=== PATIENT | female | born 1975 | race Hispanic/Latino ===

== ENCOUNTER 2016-05-18 14:27 | Emergency (ER) | payer OTHER ==
[~2016-05-18] VITALS: Ht 157.5 cm; Wt 82.7 kg
[~2016-05-18 14:27] MED LIST: CLIN-78 PO; KETO10DR13 OP; NOMED
[2016-05-18 14:48] VITALS: BP 164/103; PULSE 98; RESP 15; O2SAT 100
--- NOTE | 2016-05-18 17:27 | ED.REPORT ---
HPI-Chest Pain Under 40 Date of Service May 18, 2016 ED Provider: Dr. Khanh Turk M.D. A 40 year old female with a history of anxiety and asthma presents to the ED with lower back pain onset yesterday. The patient took Ibuprofen at onset with some relief but the pain worsened at 1300 today, concentrating on the right. The pain is exacerbated with movement. The patient denies fever, numbness/ weakness in the legs, incontinence, or other symptoms. Nursing Notes Stated Complaint: LOWER BACK PAIN Chief Complaint: Back Pain or Injury Nursing Notes Reviewed: Yes Allergies: Coded Allergies: nalbuphine (Verified Allergy, Severe, 07/13/15) SKIN PAIN Penicillins (Verified Allergy, Intermediate, 07/13/15) oxycodone (Verified Allergy, Intermediate, Rash, 05/18/16) Scheduled Clindamycin (Clindamycin) 300 Mg Capsule 300 MG PO QID Ketotifen Fumarate (Allergy Eye Drops) 10 Ml Drops 0.025 % OP DAILY 2 drops daily to rt eye Scheduled PRN Ibuprofen (Ibuprofen) 600 Mg Tablet 600 MG PO QID PRN PRN For Pain Miscellaneous Medications No Historical Medication (No Historical Medication) Ea General Time Seen by MD: 17:26 Chief Complaint Back pain Hx Obtained From: Patient Arrived By: Walk-in Onset Occurred: Yesterday (Worsening 1300) Symptom Duration: Since onset Location: : Back (Lower, right) Quality: Painful Severity: Current: Moderate Severity: Maximum: Moderate Associated with: Denies: Fever, Numbness/tingling, Weakness Exacerbated by: Movement Relieved by: OTC medications Context Related History: Reports: Anxiety disorder, Asthma Recent Healthcare: No recent doctor visit Past Medical History Past Medical History Anxiety Asthma Past Surgical History Reports: Appendectomy, Cholecystectomy Reports: Tubal ligation Smoking History Unknown if Ever Smoker Social History Other Social History: Good social support, Local resident Ambulatory Status Independent Review of Systems Her last normal menstrual period was at the end of last month. Constitutional: Denies: Fever Respiratory: Denies: Non-productive cough, Shortness of breath GI: Denies: Diarrhea, Vomiting Musculoskeletal: Reports: Back pain (Lower, right-sided) Neurologic: Denies: Bladder dysfunction, Bowel dysfunction, Numbness, Weakness Complete sys rev & neg: except as marked. Physical Exam Initial Vital Signs Vital Signs (First) Date Time Temp Pulse Resp B/P Pulse Ox O2 Delivery O2 Flow Rate FiO2 05/18/16 14:48 36.2 98 15 164/103 100 Room Air Initial VS: Reviewed Head / Eyes: Atraumatic, Normocephalic ENT: Conjunctiva normal, No scleral icterus Skin: Warm, Dry Psychiatric: Mood/affect normal, Behavior normal, Normal thought content General/Constitutional: Awake, Alert Back: No midline vertebral tend, No CVA tenderness No sacral tenderness Neurologic: Speech NL, No motor deficits, Reflexes equal bilat Gait Abnormality: Positive: Antalgic gait Interpretation & Diagnostics URINE TEST: Negative URINE DIPSTICK: 1.005 sp gravity 5 pH Normal Glucose Normal Urobilinogen Otherwise Negative Lab Results Interpretation Test 05/18/16 16:47 Hold Urine Received (Received) Re-Eval/Medical Decision Source of Hx: Old records Re-Evaluation/Progress : Time of Eval: 17:45 Patient Status: Condition improved Re-Evaluation/Progress Note: Discussed with patient lab results, diagnosis, and plan for discharge. Follow-up and return to the ER instructions given. Patient agrees with plan for care and all questions were addressed. Counseled Regarding: Diagnosis, Lab results, Need for follow-up, When/why to return to ED Discharge & Departure Departure Notes Pt advised to re-check with PMD soon re BP Primary Impression: Low back pain Chronicity: acute Back pain laterality: right Sciatica presence: without sciatica Qualified Code: M54.5 - Low back pain Disposition: Home Discharge Condition All VS Reviewed: Yes Condition: Improved Patient Instructions: Low Back Strain (ED) Additional Instructions: ED evaluation included interview and exam. We also checked urine. This back pain is musculoskeletal. Activity as tolerated, avoid bending or lifting more than 20# for one week. Ice to sore areas, keep ice wrapped in cloth, remove after 10-15 minutes, you can do this several times a day. gentle stretching will help. Ibuprofen 600mg 3-4 times a day, take this with food. Return to ED for fevers, vomiting, problems with bowel or bladder control, weakness in legs. Call primary care for follow up soon. Referrals: Razia Mcclendon MD (PCP) Scribe Attestation Portions of this note were transcribed by Angeles Owen. I, Dr. Turk, personally performed the history, physical exam, and medical decision-making; I reviewed and confirmed the accuracy of the information in the transcribed note. Signed by: Sherrie Santana, 05/18/2016, 20:15 copies to: Razia Mcclendon MD, Donald L MD May 18, 2016 17:27 ANGELES OWEN May 18, 2016 17:37
[2016-05-18] MEDS ORDERED: IBUP-1827 PO (17:45)
== END 2016-05-18 17:52 | disposition home or self-care (01) ==
LOC: SED 14:27
DX: M54.5 Low back pain (principal); F41.9 Anxiety disorder, unspecified; J45.909 Unspecified asthma, uncomplicated; Z88.5 Allergy status to narcotic agent; Z88.0 Allergy status to penicillin